=== PATIENT | male | born 1995 | race Caucasian/White ===

== ENCOUNTER 2017-04-11 09:17 | Emergency (ER) | payer OTHER ==
[~2017-04-11] VITALS: Ht 175.3 cm; Wt 87.1 kg
[~2017-04-11 09:17] MED LIST: ZOFR4TAB3 SL
[2017-04-11 09:18] VITALS: BP 141/82; PULSE 88; RESP 16; TEMP 98; O2SAT 98
[2017-04-11] MEDS ORDERED: LIDOCAINE HCL 1% 50 ML VIAL XX ONE (09:45)
[2017-04-11] MEDS ORDERED: cefTRIAXone 250 MG VIAL IM ONE (09:45)
[2017-04-11] MEDS ORDERED: AZITHROMYCIN 250 MG TAB PO ONE (09:45)
--- NOTE | 2017-04-11 09:46 | PD ---
HPI Chief Complaint: Complaint Time Seen by Provider: 09:24 Travel History International Travel<30 days: No Contact w/Intl Traveler<30days: No Traveled to known affect area: No History of Present Illness HPI The patient is a 21-year-old male who presents to the emergency department for penile discharge. The patient notes a 2 day history of penile discharge which is been yellow to 10 color and occasionally associated with blood. He does complain of mild dysuria without urgency or frequency. The patient does have a history of similar symptoms in the past secondary to gonorrhea. The patient has been having unprotected sex with men. He denies any swelling or pain around the testicles or scrotum. He denies any nausea, vomiting, abdominal pain, myalgias, arthralgias, or rash. Symptoms are moderate. There are no alleviating or exacerbating factors. 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 OF HEROINE) Allergies-Medications (Allergen,Severity, Reaction): Coded Allergies: No Known Allergies (Verified Adverse Reaction, Unknown, 04/11/17) Reported Meds & Prescriptions Reported Meds & Active Scripts Active Zofran ODT (Ondansetron HCl) 4 Mg Tab 4 Mg SL Q6H PRN FOR NAUSEA/VOMITING Review of Systems Except as stated in HPI: all other systems reviewed are Neg General / Constitutional: No: Fever, Chills Gastrointestinal: No: Nausea, Vomiting, Abdominal Pain Genitourinary: Positive: Dysuria, Other (as noted in history of present illness ) Musculoskeletal: No: Myalgias, Arthralgias Skin: No Rash Physical Exam Narrative GENERAL: Awake, alert, pleasant 21-year-old male who appears his stated age and is in no acute respiratory distress. SKIN: Focused skin assessment warm/dry. HEAD: Atraumatic. Normocephalic. EYES: Pupils equal and round. No scleral icterus. No injection or drainage. GASTROINTESTINAL: Abdomen soft, non-tender, nondistended. No rebound tenderness , guarding, rigidity. Back: No CVA tenderness. Genitourinary: Circumcised phallus. Visible drainage at the meatus. Both testicles are descended and nontender. MUSCULOSKELETAL: No obvious deformities. No clubbing. No cyanosis. No edema. NEUROLOGICAL: Awake and alert. No obvious cranial nerve deficits. Motor grossly within normal limits. Normal speech. PSYCHIATRIC: Appropriate mood and affect; insight and judgment normal. Data Data Last Documented VS Vital Signs Date Time Temp Pulse Resp B/P (MAP) Pulse Ox O2 Delivery O2 Flow Rate FiO2 04/11/17 09:18 98.0 88 16 141/82 (101) 98 Orders Orders Gc And Chlamydia Pcr (04/11/17 09:40) Azithromycin (Zithromax) (04/11/17 09:45) Ceftriaxone Inj (Rocephin Inj) (04/11/17 09:45) Lidocaine 1% Inj (50 Ml) (Xylocaine 1% I (04/11/17 09:45) Ed Discharge Order (04/11/17 09:44) Labs Laboratory Tests Test 04/11/17 09:44 [facility] Medical Decision Making Medical Screen Exam Complete: Yes Emergency Medical Condition: Yes Medical Record Reviewed: Yes Differential Diagnosis Differential diagnosis includes gonorrhea, chlamydia, UTI, urethritis, complicated UTI, STI. Narrative Course A UA was sent to lab. The patient was covered for gonorrhea and chlamydia with Rocephin 250 mg IM and Zithromax 1 g by mouth. The patient is advised to follow -up with the [facility] Department for further testing as warranted for syphilis and HIV. He is advised to wear condoms. Diagnosis Primary Impression: Urethritis Patient Instructions: General Instructions Additional Instructions: Wear condoms. Follow-up with the [facility] Department as needed for further testing for HIV and syphilis. Return if symptoms worsen or progress. Med/Other Pt SpecificInfo: No Change to Meds Disposition: 01 DISCHARGE HOME Condition: Stable Shailesh Madrid MD Apr 11, 2017 09:46
[2017-04-11 10:42] VITALS: BP 143/75; TEMP 98.4
== END 2017-04-11 10:45 | disposition home or self-care (01) ==
LOC: PHED 09:17
DX: N34.2 Other urethritis (principal)
CPT/HCPCS: 87491; 87591; 96372; 99284; J0696

== ENCOUNTER 2017-07-23 11:02 | Emergency (ER) | payer OTHER ==
[~2017-07-23] VITALS: Ht 175.3 cm; Wt 82.6 kg
[2017-07-23 11:06] VITALS: BP 143/73; PULSE 73; RESP 16; TEMP 97.8; O2SAT 99
[2017-07-23] MEDS ORDERED: cefTRIAXone 250 MG VIAL IM ONE (11:30)
[2017-07-23] MEDS ORDERED: AZITHROMYCIN PWD FOR SUSP 1 GM PACKET PO ONE (11:30)
[2017-07-23] MEDS ORDERED: LIDOCAINE HCL 1% 50 ML VIAL XX ONE (11:30)
[2017-07-23] MEDS ORDERED: SODIUM CHLORIDE 0.9% FLUSH 10 ML FLUSH IVF PRN (11:30)
--- NOTE | 2017-07-23 11:40 | PD ---
HPI Chief Complaint: Complaint Time Seen by Provider: 11:17 Travel History International Travel<30 days: No Contact w/Intl Traveler<30days: No Traveled to known affect area: No History of Present Illness HPI 22-year-old male presents emergency department for evaluation of gonorrhea exposure. States that he had sex with a partner who has known gonorrhea and would like to get treated and tested for this today. Patient states he has a history of gonorrhea previously was treated without issue. Patient says he occasionally uses protection. Says he has had one partner the last several weeks. He denies fever, chills, penile discharge, dysuria, hematuria. He denies any chronic medical issues or medication use. 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 OF HEROINE) Allergies-Medications (Allergen,Severity, Reaction): Coded Allergies: No Known Allergies (Verified Adverse Reaction, Unknown, 07/23/17) Reported Meds & Prescriptions Reported Meds & Active Scripts Active No Active Prescriptions or Reported Medications Review of Systems Except as stated in HPI: all other systems reviewed are Neg Physical Exam Narrative GENERAL: Well-nourished, well-developed patient. SKIN: Focused skin assessment warm/dry. HEAD: Normocephalic. EYES: No scleral icterus. No injection or drainage. CARDIOVASCULAR: Regular rate and rhythm without murmurs, gallops, or rubs. RESPIRATORY: Breath sounds equal bilaterally. No accessory muscle use. GASTROINTESTINAL: Abdomen soft, non-tender, nondistended. No CVA tenderness exam deferred as patient denies any symptoms MUSCULOSKELETAL: No cyanosis, or edema. BACK: Nontender without obvious deformity. No CVA tenderness. Data Data Last Documented VS Vital Signs Date Time Temp Pulse Resp B/P (MAP) Pulse Ox O2 Delivery O2 Flow Rate FiO2 07/23/17 11:06 97.8 73 16 143/73 (96) 99 Orders Orders Gc And Chlamydia Pcr (07/23/17 11:16) Azithromycin Powd Pack (Zithromax Powd P (07/23/17 11:30) Ceftriaxone Inj (Rocephin Inj) (07/23/17 11:30) Sodium Chloride 0.9% Flush (Ns Flush) (07/23/17 11:30) Lidocaine 1% Inj (50 Ml) (Xylocaine 1% I (07/23/17 11:30) Labs Laboratory Tests Test 07/23/17 11:20 [facility] Medical Decision Making Medical Screen Exam Complete: Yes Emergency Medical Condition: Yes Differential Diagnosis Gonorrhea exposure, chlamydia exposure, gonorrhea Narrative Course 22-year-old male presents emergency department for evaluation of gonorrhea exposure. States that he had sex with a partner who has known gonorrhea and would like to get treated and tested for this today. Patient states he has a history of gonorrhea previously was treated without issue. Patient says he occasionally uses protection. Says he has had one partner the last several weeks. He denies fever, chills, penile discharge, dysuria, hematuria. He denies any chronic medical issues or medication use. Vital signs are stable. His exam findings essentially unremarkable. exam deferred. Rocephin and azithromycin for treatment. Patient highly encouraged to use protection when engaging in sexual activity. Advised to follow-up with a primary care physician for further treatment and evaluation. Consider follow-up with health department to evaluate for contractions. Diagnosis Primary Impression: Exposure to chlamydia Referrals: [facility]. Additional Instructions: Follow-up with the primary care physician within 1 week. Consider follow-up with [facility] for further evaluation of possible co-infections. Use protection to avoid further infections. If your symptoms persist or worsen return to the emergency department. You do not require any further outpatient antibiotics as you are completely treated in the emergency department today. Scripts No Active Prescriptions or Reported Meds Disposition: 01 DISCHARGE HOME Condition: Stable Shelly Franklin Jul 23, 2017 11:39
== END 2017-07-23 11:45 | disposition home or self-care (01) ==
LOC: PHEFT 11:02
DX: Z11.3 Encounter for screening for infections with a predominantly sexual mode of transmission (principal); Z20.2 Contact with and (suspected) exposure to infections with a predominantly sexual mode of transmission
CPT/HCPCS: 87491; 87591; 96372; 99283; J0696